=== PATIENT | male | born 1995 | race African-American/Black ===

== ENCOUNTER 2022-03-15 14:58 | Emergency (ER) | payer MEDICAID ==
[~2022-03-15] VITALS: Ht 177.8 cm; Wt 75.0 kg
[2022-03-15 15:14] VITALS: BP 142/88
[2022-03-15] MEDS ORDERED: KETOROLAC TROMETH 60MG/2ML VIAL IM ONE (15:30)
[2022-03-15] MEDS ORDERED: HUR60 MT (15:30)
[2022-03-15] MEDS ORDERED: cefTRIAXone SOD 1,000 MG VL IM ONE (15:30)
[2022-03-15] MEDS ORDERED: AMOX400S53 PO (15:30)
== END 2022-03-15 15:48 | disposition home or self-care (01) ==
LOC: ER 14:58
DX: K04.7 Periapical abscess without sinus (principal)
CPT/HCPCS: 96372; 99284; J0696; J1885

== ENCOUNTER 2023-02-22 19:50 | Emergency (ER) | payer MEDICAID ==
[~2023-02-22] VITALS: Ht 177.8 cm; Wt 74.0 kg
[~2023-02-22 19:50] MED LIST: AMOX400S53 PO; HUR60 MT
[2023-02-22 20:01] VITALS: BP 112/81; PULSE 77; RESP 16; TEMP 99; O2SAT 99
[2023-02-22] MEDS ORDERED: IBUPROFEN 600 MG TAB PO ONE (21:15)
[2023-02-22] MEDS ORDERED: IBUP-1454 PO (22:24)
== END 2023-02-23 01:27 | disposition home or self-care (01) ==
LOC: ER 19:50
DX: M25.512 Pain in left shoulder (principal); F17.210 Nicotine dependence, cigarettes, uncomplicated; Z79.2 Long term (current) use of antibiotics; Z79.899 Other long term (current) drug therapy
CPT/HCPCS: 73030